=== PATIENT | female | born 1965 | race Two or more races ===

== ENCOUNTER 2017-02-20 22:25 | Emergency (ER) | payer MEDICAID ==
[~2017-02-20] VITALS: Ht 157.5 cm; Wt 99.8 kg
[2017-02-20] MEDS ORDERED: POTASSIUM (22:49)
[2017-02-20] MEDS ORDERED: FURO-152 PO (22:49)
[2017-02-20] MEDS ORDERED: PHEN-704 PO (22:49)
--- NOTE | 2017-02-20 22:50 | NUR ---
pt ambulatory to bed c/o sob, poss allergy reaction. o2 sat 92 on ra. placed on 2 l. saline lock to left ac sl inserted. family at bedside.
[2017-02-20] MEDS ORDERED: diphenhydrAMINE 50 MG/1 ML VIAL IV ONE (23:00)
[2017-02-20] MEDS ORDERED: methylPREDNISolone SOD SUCC 125 MG/2 ML VIAL IV ONE (23:00)
[2017-02-20] MEDS ORDERED: FAMOTIDINE. 20 MG/2 ML VIAL IV ONE ×2 (23:00→23:03)
--- NOTE | 2017-02-20 23:00 | NUR ---
dr montiel at the bedside evaluate and examine pt, rt in to draw abg. labs drawn.
[2017-02-20] MEDS ORDERED: diphenhydrAMINE 50 MG/1 ML VIAL ONE (23:03)
[2017-02-20] MEDS ORDERED: methylPREDNISolone SOD SUCC 125 MG/2 ML VIAL ONE (23:03)
--- NOTE | 2017-02-20 23:10 | NUR ---
PT RESTING QUIETLY DENIES PAIN BP143/68 P 88 R20 O2 SAT95% FAMILY AT BEDSIDE
[2017-02-20 23:16] LABS: ABG BASE EXCESS -0.4 mmol/L; ABG HCO3 24.4 mmol/L; ABG PCO2 40.4 mmHg (35.0-45.0); ABG PH 7.398 (7.350-7.450); ABG PO2 55.5 mmHg (75.0-100.0); ABG SITE LEFT RADIAL; MetHb 0.3 % (0.0-1.5); O2Hb 86.3 % (94.0-97.0); VENT MODE ROOM AIR
[2017-02-20 23:23] LABS: BASOPHILS % (AUTO) 0.3 % (0.0-2.0); EOSINOPHILS # (AUTO) 0.1 K/uL (0.0-0.7); EOSINOPHILS % (AUTO) 1.2 % (0.0-7.0); HEMATOCRIT 40.5 % (37.0-47.0); HEMOGLOBIN 13.4 g/dL (12.0-16.0); LYMPHOCYTES # (AUTO) 2.7 K/uL (0.8-4.8); LYMPHOCYTES % (AUTO) 38.6 % (20.5-51.5); MEAN CORPUSCULAR HEMOGLOBIN 26.1 uug (27.0-31.0); MEAN CORPUSCULAR HGB CONC 33 g/dL (32.0-37.0); MEAN CORPUSCULAR VOLUME 78.9 fL (81.0-99.0); MONOCYTES # (AUTO) 0.4 K/uL (0.1-1.30); MONOCYTES % (AUTO) 5.1 % (0.0-11.0); NEUTROPHILS # (AUTO) 3.7 K/uL (1.8-8.9); NEUTROPHILS % (AUTO) 54.8 % (38.5-71.5); PLATELET COUNT (AUTO) 255 K/uL (150-450); RED BLOOD CELL COUNT(AUTO) 5.13 MIL/uL (4.20-5.40); RED CELL DISTRIBUTION WIDTH 12.8 % (11.5-14.5); WHITE BLOOD COUNT (AUTO) 6.9 K/uL (4.0-11.2)
[2017-02-20 23:33] LABS: CALCIUM 9.2 mg/dL (8.5-10.1); CREATININE 0.9 mg/dL (0.6-1.3); POTASSIUM 3.8 mmol/L (3.5-5.1)
[2017-02-20 23:39] LABS: ALBUMIN 3.9 g/dL (3.4-5.0); BILIRUBIN,DIRECT 0.1 mg/dL (0.0-0.2); BILIRUBIN,TOTAL 0.4 mg/dL (0.2-1.0); TOTAL PROTEIN, SERUM 7.8 g/dL (6.4-8.2)
[2017-02-20] MEDS ORDERED: POTA8CAP10 PO (23:45)
[2017-02-20] MEDS ORDERED: PHEN-705 PO (23:45)
[2017-02-20] MEDS ORDERED: FURO20TA4 PO (23:45)
[2017-02-20] MEDS ORDERED: IBUP-1955 PO (23:45)
--- NOTE | 2017-02-21 00:05 | NUR ---
NO CHANGE IN CONDITION.PT UP TO BATHROOM.VOIDING WITHOUT DIFFICULTY. BP 119 P 83 R18
[2017-02-21] MEDS ORDERED: ALBUTEROL SULFATE 2.5 MG/3 ML NEBU NEB ONE (00:45)
[2017-02-21] MEDS ORDERED: IOHEXOL 350 100 ML INFUS..BTL ONE (00:48)
[2017-02-21] MEDS ORDERED: NORMAL SALINE FLUSH 10 ML DISP.SYRIN ONE (00:48)
[2017-02-21] MEDS ORDERED: IV NORMAL SALINE 250 ML IV ONE (00:48)
[2017-02-21] MEDS ORDERED: ALBUTEROL SULFATE 2.5 MG/3 ML NEBU ONE (01:16)
--- NOTE | 2017-02-21 02:00 | NUR ---
PT RESTING FAMILY AT BEDSIDE.PTS SKIN HAS LOST MOST OF REDNESS.DENIES PAIN
--- NOTE | 2017-02-21 02:35 | NUR ---
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
[2017-02-21 02:48] VITALS: BP 118/66
== END 2017-02-21 02:40 | disposition home or self-care (01) ==
LOC: ER 22:27
DX: L53.9 Erythematous condition, unspecified (principal); T50.995A Adverse effect of other drugs, medicaments and biological substances, initial encounter; Y92.89 Other specified places as the place of occurrence of the external cause
CPT/HCPCS: 36415; 36600; 71010; 71275; 85025; 93005; A4663; J1200; J2930; J3490; J7050; Q9967

== ENCOUNTER 2019-07-11 22:44 | Emergency (ER) | payer MEDICAID ==
[~2019-07-11] VITALS: Ht 157.5 cm; Wt 84.8 kg
[~2019-07-11 22:44] MED LIST: FURO20TA4 PO; IBUP-1955 PO; PHEN-705 PO; POTA8CAP20 PO
--- NOTE | 2019-07-12 00:10 | NUR ---
Dr. Ramirez at bedside to evaluate patient.
--- NOTE | 2019-07-12 01:28 | NUR ---
Ultrasound at bedside.
--- NOTE | 2019-07-12 01:49 | NUR ---
Patient discharged to home in stable conditon. Written and verbal after care instructions given. Patient verbalizes understanding of instructions.
--- NOTE | 2019-07-12 01:52 | NUR ---
Pt walked out of ER in stable gait, with family who will take pt. Pt appears in no apparent distress. denies any pain at this time.
[2019-07-12 01:53] VITALS: BP 112/81
== END 2019-07-12 01:53 | disposition home or self-care (01) ==
LOC: ER 22:44
DX: I80.02 Phlebitis and thrombophlebitis of superficial vessels of left lower extremity (principal); Z79.1 Long term (current) use of non-steroidal anti-inflammatories (NSAID); Z79.899 Other long term (current) drug therapy
CPT/HCPCS: A4663

== ENCOUNTER 2021-07-06 12:45 | Emergency (ER) | payer MEDICAID ==
[~2021-07-06] VITALS: Ht 157.5 cm; Wt 81.6 kg
[2021-07-06] MEDS ORDERED: DIPH103G TP (14:36)
[2021-07-06] MEDS ORDERED: [UNRECOGNIZED DRUG - CODE] TP (14:40)
--- NOTE | 2021-07-06 14:47 | NUR ---
Patient discharged to home in stable condition. Written and verbal after care instructions given. Patient verbalizes understanding of instructions. Stressed follow up or return to ER for worsening s/s.
[2021-07-06 14:48] VITALS: BP 108/54
== END 2021-07-06 14:50 | disposition home or self-care (01) ==
LOC: ER 12:45
DX: S62.653A Nondisplaced fracture of middle phalanx of left middle finger, initial encounter for closed fracture (principal); W22.8XXA Striking against or struck by other objects, initial encounter; Y93.89 Activity, other specified; Y92.89 Other specified places as the place of occurrence of the external cause; R21 Rash and other nonspecific skin eruption
CPT/HCPCS: 73130; A4663